=== PATIENT | female | born 1950 | race Caucasian/White ===

== ENCOUNTER 2022-03-31 20:05 | Inpatient (IN) | payer MEDICAID, OTHER ==
[~2022-03-31] VITALS: Ht 170.2 cm; Wt 124.0 kg
[~2022-03-31 20:05] MED LIST: ALPR0.5T7 PO; ASPI1TAB20 PO; ATEN-60 PO; CARV12.544 PO; ENAL20TA8 PO; ESCI-28 PO; FURO1TAB33 PO; LIS5T GT; NOR10T PO; POTA1TAB61 PO; PROM25TA5 PO; RIVA10TA PO; TRAM-297 PO
[2022-03-31 23:22] LABS: Basophils # (auto) 0 10 ^3/uL (0-0.2); Basophils % (auto) 0.9 % (0.0-2.0); Eosinophils # (auto) 0 10 ^3/uL (0-0.8); Eosinophils % (auto) 0.8 % (0.0-7.0); Hematocrit 39.9 % (36.0-46.0); Hemoglobin 13.3 g/dL (12.2-16.2); Lymphocytes # (auto) 0.7 10 ^3/uL (0.4-5.4); Lymphocytes % (auto) 16.8 % (10.0-50.0); Mean Corpuscular Hemoglobin 37.4 pg (28.0-32.0); Mean Corpuscular Hgb Conc. 33.4 g/dL (32.0-36.0); Mean Corpuscular Volume 111.9 fL (80.0-100.0); Monocytes # (auto) 0.4 10 ^3/uL (0-1.3); Monocytes % (auto) 10.2 % (0.0-12.0); Neutrophils # (auto) 2.8 10 ^3/uL (1.6-8.6); Neutrophils % (auto) 71.3 % (37.0-80.0); Nucleated Red Blood Cells % 0.2 %; Red Blood Cells 3.57 10^6/uL (4.0-5.20); Red Cell Distribution Width 15.2 % (11.8-14.3); White Blood Cell 3.9 10^3/uL (4.4-10.8)
[2022-03-31 23:42] LABS: Calcium 9.7 mg/dL (8.5-10.1)
[2022-03-31 23:45] LABS: Albumin 3.3 g/dL (3.4-5.0); BUN/Creatinine Ratio 17.5
[2022-03-31 23:47] LABS: Bilirubin, Total 1.1 mg/dL (0.2-1.0); Total Protein 6.6 g/dL (6.4-8.2)
[2022-04-01] MEDS ORDERED: FUROSEMIDE 20 MG/2 ML VIAL IV ONE (02:00)
[2022-04-01] MEDS ORDERED: ASPirin 81 mg TAB PO ONE (02:00)
[2022-04-01 05:28] LABS: Urine Bacteria NONE SEEN /hpf (None Seen); Urine Blood Negative /uL (Negative); Urine Hyaline Cast FEW /lpf (0 - 2); Urine Specific Gravity 1.015 (1.001-1.035); Urine WBC 2 /hpf (0 - 5)
[2022-04-01] MEDS ORDERED: NITROGLYCERIN 0.4 MG SL TAB SL PRN (13:00)
[2022-04-01] MEDS ORDERED: MORPHINE SULFATE INJ 2 MG/ml SYRG IV PRN ×2 (13:00→13:15)
[2022-04-01] MEDS ORDERED: FUROSEMIDE 40 MG/4 ML VIAL IV ONE (13:15)
[2022-04-01] MEDS ORDERED: hydrALAZINE HCL 20 MG/ML VL IV PRN (13:15)
[2022-04-01] MEDS ORDERED: ALBUTEROL SULF 2.5 MG/0.5ML(0.5%) NEB SOLN NEB PRN (13:30)
[2022-04-01 13:54] LABS: Alcohol, Urine < 3.0 mg/dL (0-10); Amphetamine Screen, Urine NEGATIVE (NEGATIVE); Barbiturate Scree,Urine NEGATIVE (NEGATIVE); Benzodiazephine Screen, Urine POSITIVE (NEGATIVE); Cannabinoid Screen, Urine NEGATIVE (NEGATIVE); Cocaine Screen, Urine NEGATIVE (NEGATIVE); Opiate Scree,Urine POSITIVE (NEGATIVE); Phencyclidine Screen, Urine NEGATIVE (NEGATIVE)
[2022-04-01 14:22] VITALS: BP 141/93
[2022-04-01] MEDS: ALPRAZolam 0.25 MG TAB PO PRN ×2 (14:46→23:33)
[2022-04-01 15:11] LABS: Cholesterol 123 mg/dL (< 200)
[2022-04-01 15:14] LABS: HDL Cholesterol 53 mg/dL (40-59); LDL Cholesterol 71 mg/dL (< 100); Triglycerides 75 mg/dL (< 150)
[2022-04-01 16:38] VITALS: BP 141/93
[2022-04-01 22:00] VITALS: BP 153/86
[2022-04-01] MEDS: MORPHINE SULFATE 4 MG/ML SYR/VIAL IV PRN (22:05)
[2022-04-02] MEDS: HYDROcodone-ACET 5/325MG TAB PO PRN ×4 (00:13→14:03)
[2022-04-02] MEDS: MORPHINE SULFATE 4 MG/ML SYR/VIAL IV PRN ×2 (03:18→22:14)
[2022-04-02 05:00] VITALS: BP 141/78
[2022-04-02 06:27] LABS: Basophils # (auto) 0 10 ^3/uL (0-0.2); Basophils % (auto) 0.9 % (0.0-2.0); Eosinophils # (auto) 0.1 10 ^3/uL (0-0.8); Eosinophils % (auto) 1.8 % (0.0-7.0); Hematocrit 38.6 % (36.0-46.0); Hemoglobin 12.9 g/dL (12.2-16.2); Lymphocytes # (auto) 0.8 10 ^3/uL (0.4-5.4); Lymphocytes % (auto) 18.8 % (10.0-50.0); Mean Corpuscular Hemoglobin 37.3 pg (28.0-32.0); Mean Corpuscular Hgb Conc. 33.5 g/dL (32.0-36.0); Monocytes # (auto) 0.6 10 ^3/uL (0-1.3); Monocytes % (auto) 13.2 % (0.0-12.0); Neutrophils # (auto) 2.9 10 ^3/uL (1.6-8.6); Neutrophils % (auto) 65.3 % (37.0-80.0); Red Blood Cells 3.47 10^6/uL (4.0-5.20); Red Cell Distribution Width 14.8 % (11.8-14.3); White Blood Cell 4.5 10^3/uL (4.4-10.8)
[2022-04-02 06:32] LABS: Mean Corpuscular Volume 111.2 fL (80.0-100.0)
[2022-04-02 06:43] LABS: Albumin 2.8 g/dL (3.4-5.0); Calcium 9.2 mg/dL (8.5-10.1); Potassium 3.6 mmol/L (3.5-5.1)
[2022-04-02 06:46] LABS: BUN/Creatinine Ratio 13.2; Bilirubin, Total 1.2 mg/dL (0.2-1.0); Total Protein 6.1 g/dL (6.4-8.2)
[2022-04-02 09:00] VITALS: BP 152/66
[2022-04-02] MEDS ORDERED: FUROSEMIDE 40 MG/4 ML VIAL IV SCH (10:00)
[2022-04-02] MEDS ORDERED: ENOXAPARIN SOD 40 MG/0.4 ML SYRINGE SC SCH (10:00)
[2022-04-02] MEDS: ALPRAZolam 0.25 MG TAB PO PRN ×2 (10:42→19:46)
[2022-04-02 13:00] VITALS: BP 140/95
[2022-04-02] MEDS ORDERED: AMIODARONE HCL 200 MG TAB PO ONE (16:45)
[2022-04-02] MEDS ORDERED: LOSARTAN POTASSIUM 25 MG TAB PO ONE (16:45)
[2022-04-02] MEDS: HYDROcodone-ACET 10/325MG TAB PO PRN ×2 (16:55→20:58)
[2022-04-02 17:00] VITALS: BP 142/87
[2022-04-02] MEDS ORDERED: ONDANSETRON HCL 4 MG/2 ML VIAL IV PRN (17:00)
[2022-04-02] MEDS: FUROSEMIDE 40 MG/4 ML VIAL IV SCH (17:26)
[2022-04-02] MEDS ORDERED: RIVAROXABAN 20 MG TAB PO SCH (18:00)
[2022-04-02 22:00] VITALS: BP 143/84
[2022-04-02] MEDS: DOCUSATE SOD 100 MG CAP PO SCH (22:07)
[2022-04-02] MEDS: METOPROLOL TARTRATE 25 MG TAB PO SCH (22:14)
[2022-04-03] MEDS: HYDROcodone-ACET 10/325MG TAB PO PRN ×3 (01:27→15:15)
[2022-04-03] MEDS: ALPRAZolam 0.25 MG TAB PO PRN ×2 (03:52→12:08)
[2022-04-03 05:00] VITALS: BP 126/87
[2022-04-03 05:46] LABS: Basophils # (auto) 0 10 ^3/uL (0-0.2); Basophils % (auto) 0.9 % (0.0-2.0); Eosinophils # (auto) 0.1 10 ^3/uL (0-0.8); Eosinophils % (auto) 2.3 % (0.0-7.0); Hematocrit 36.9 % (36.0-46.0); Hemoglobin 12.5 g/dL (12.2-16.2); Lymphocytes # (auto) 0.8 10 ^3/uL (0.4-5.4); Lymphocytes % (auto) 20.1 % (10.0-50.0); Mean Corpuscular Hemoglobin 37.6 pg (28.0-32.0); Mean Corpuscular Hgb Conc. 33.9 g/dL (32.0-36.0); Mean Corpuscular Volume 110.9 fL (80.0-100.0); Monocytes # (auto) 0.5 10 ^3/uL (0-1.3); Monocytes % (auto) 13.2 % (0.0-12.0); Neutrophils # (auto) 2.6 10 ^3/uL (1.6-8.6); Neutrophils % (auto) 63.5 % (37.0-80.0); Nucleated Red Blood Cells % 0.2 %; Red Blood Cells 3.32 10^6/uL (4.0-5.20); Red Cell Distribution Width 14.4 % (11.8-14.3)
[2022-04-03] MEDS: FUROSEMIDE 40 MG/4 ML VIAL IV SCH (06:01)
[2022-04-03 06:09] LABS: Potassium 3.4 mmol/L (3.5-5.1)
[2022-04-03 06:22] LABS: BUN/Creatinine Ratio 13.7; Magnesium 2.1 mg/dL (1.6-2.6)
[2022-04-03 08:00] VITALS: BP 129/79
[2022-04-03] MEDS: METOPROLOL TARTRATE 25 MG TAB PO SCH (10:00)
[2022-04-03] MEDS ORDERED: LOSARTAN POTASSIUM 25 MG TAB PO SCH (10:00)
[2022-04-03] MEDS: DOCUSATE SOD 100 MG CAP PO SCH (10:00)
[2022-04-03] MEDS ORDERED: AMIODARONE HCL 200 MG TAB PO SCH (10:00)
[2022-04-03 12:00] VITALS: BP 129/77
[2022-04-03 15:55] VITALS: BP 129/77
== END 2022-04-03 16:39 | disposition home or self-care (01) | DRG 291 ==
LOC: EDBD 20:05 → ER 20:05 → TELE 04-01 12:56 → TELE-EAST 04-01 15:20
PROVIDERS: ADMIT Registered Nurse; ATTEND Internal Medicine Geriatric Medicine
DX: I13.0 Hypertensive heart and chronic kidney disease with heart failure and stage 1 through stage 4 chronic kidney disease, or unspecified chronic kidney disease (principal); I50.43 Acute on chronic combined systolic (congestive) and diastolic (congestive) heart failure; Z68.41 Body mass index [BMI] 40.0-44.9, adult; E66.01 Morbid (severe) obesity due to excess calories; F32.A Depression, unspecified; F41.9 Anxiety disorder, unspecified; N18.32 Chronic kidney disease, stage 3b; Z20.822 Contact with and (suspected) exposure to COVID-19; I48.0 Paroxysmal atrial fibrillation; R80.9 Proteinuria, unspecified; Z79.01 Long term (current) use of anticoagulants; Z79.899 Other long term (current) drug therapy; Z87.442 Personal history of urinary calculi; Z90.710 Acquired absence of both cervix and uterus; Z95.0 Presence of cardiac pacemaker; Z88.5 Allergy status to narcotic agent; Z88.8 Allergy status to other drugs, medicaments and biological substances; Z90.49 Acquired absence of other specified parts of digestive tract
CPT/HCPCS: 36415; 70450; 71045; 80048; 80053; 80061; 80307; 81001; 82962; 83036; 83735; 83880; 84484; 85025; 85379; 93005; 93306; 96374; 99291; G0378

== ENCOUNTER 2022-11-13 17:14 | Inpatient (IN) | payer OTHER ==
[~2022-11-13] VITALS: Ht 175.3 cm; Wt 105.0 kg
[2022-11-13 18:18] LABS: Eosinophils # (auto) 0.1 10 ^3/uL (0-0.8); Lymphocytes # (auto) 1.2 10 ^3/uL (0.4-5.4); Monocytes # (auto) 0.7 10 ^3/uL (0-1.3); Neutrophils # (auto) 2.2 10 ^3/uL (1.6-8.6)
[2022-11-13 18:20] LABS: Basophils # (auto) 0.1 10 ^3/uL (0-0.2); Basophils % (auto) 1.4 % (0.0-2.0); Eosinophils % (auto) 2.4 % (0.0-7.0); Hematocrit 37.6 % (36.0-46.0); Hemoglobin 12.8 g/dL (12.2-16.2); Lymphocytes % (auto) 27.5 % (10.0-50.0); Mean Corpuscular Hemoglobin 36.7 pg (28.0-32.0); Mean Corpuscular Hgb Conc. 33.9 g/dL (32.0-36.0); Mean Corpuscular Volume 108.1 fL (80.0-100.0); Monocytes % (auto) 15.7 % (0.0-12.0); Nucleated Red Blood Cells % 0.3 %; Red Blood Cells 3.48 10^6/uL (4.0-5.20); White Blood Cell 4.2 10^3/uL (4.4-10.8)
[2022-11-13 18:35] LABS: Albumin 3.4 g/dL (3.4-5.0); Calcium 9.4 mg/dL (8.5-10.1); Potassium 3.6 mmol/L (3.5-5.1)
[2022-11-13 18:40] LABS: Bilirubin, Total 0.6 mg/dL (0.2-1.0); Total Protein 6.4 g/dL (6.4-8.2)
[2022-11-13 19:38] LABS: BUN/Creatinine Ratio 16.2
[2022-11-14] MEDS ORDERED: ONDANSETRON HCL 4 MG/2 ML VIAL IV PRN (01:30)
[2022-11-14] MEDS ORDERED: cefTRIAXone 1GM/50ML D5W 50 ML IV ONE (01:30)
[2022-11-14] MEDS ORDERED: FUROSEMIDE 40 MG/4 ML VIAL IV ONE (01:30)
[2022-11-14] MEDS ORDERED: ACETAMINOPHEN 325 MG TAB PO PRN (01:30)
[2022-11-14] MEDS ORDERED: TEMAZEPAM 15 MG CAP PO PRN (01:30)
[2022-11-14] MEDS ORDERED: AZITHROMYCIN 500MG/ 250ML 250 ML IV ONE (01:30)
[2022-11-14] MEDS ORDERED: MORPHINE SULFATE INJ 2 MG/ml SYRG IV PRN (01:30)
[2022-11-14] MEDS ORDERED: NITROGLYCERIN 0.4 MG SL TAB SL PRN (01:30)
[2022-11-14] MEDS ORDERED: DOCUSATE SOD 100 MG CAP PO PRN (01:30)
[2022-11-14] MEDS ORDERED: MORPHINE SULFATE INJ 2 MG/ml SYRG IV ONE (04:15)
[2022-11-14 07:17] LABS: Basophils # (auto) 0 10 ^3/uL (0-0.2); Basophils % (auto) 0.9 % (0.0-2.0); Eosinophils # (auto) 0.1 10 ^3/uL (0-0.8); Hematocrit 37.9 % (36.0-46.0); Hemoglobin 12.5 g/dL (12.2-16.2); Lymphocytes % (auto) 30.7 % (10.0-50.0); Mean Corpuscular Hemoglobin 35.4 pg (28.0-32.0); Mean Corpuscular Volume 107.4 fL (80.0-100.0); Monocytes # (auto) 0.4 10 ^3/uL (0-1.3); Monocytes % (auto) 13.6 % (0.0-12.0); Neutrophils # (auto) 1.6 10 ^3/uL (1.6-8.6); Neutrophils % (auto) 51.8 % (37.0-80.0); Nucleated Red Blood Cells % 0.2 %; Red Blood Cells 3.53 10^6/uL (4.0-5.20); Red Cell Distribution Width 13.9 % (11.8-14.3); White Blood Cell 3.2 10^3/uL (4.4-10.8)
[2022-11-14] MEDS: cefTRIAXone 1GM/50ML D5W 50 ML IV SCH (07:17)
[2022-11-14 07:32] LABS: BUN/Creatinine Ratio 16.7; Calcium 9.8 mg/dL (8.5-10.1); Potassium 3.7 mmol/L (3.5-5.1)
[2022-11-14 07:35] LABS: Bilirubin, Total 0.8 mg/dL (0.2-1.0); Total Protein 6.4 g/dL (6.4-8.2)
[2022-11-14] MEDS ORDERED: FAMOTIDINE (10MG/ML) 2ML VL IV SCH (10:00)
[2022-11-14] MEDS: ASPirin 81 mg TAB PO SCH (10:00)
[2022-11-14] MEDS: AZITHROMYCIN 500MG/ 250ML 250 ML IV SCH (10:00)
[2022-11-14] MEDS ORDERED: FUROSEMIDE 40 MG/4 ML VIAL IV SCH (10:00)
[2022-11-14] MEDS: CARVEDILOL 3.125 MG TAB PO SCH ×2 (10:47→22:09)
[2022-11-14] MEDS ORDERED: POTASSIUM CHL 20 Meq TABLET PO ONE (12:15)
[2022-11-14] MEDS ORDERED: AMIODARONE HCL 200 MG TAB PO ONE (12:15)
[2022-11-14] MEDS ORDERED: LOSARTAN POTASSIUM 50 MG TAB PO ONE (12:15)
[2022-11-14 15:02] LABS: Urine Bacteria FEW /hpf (None Seen); Urine Blood Negative /uL (Negative); Urine Hyaline Cast MOD /lpf (0 - 2); Urine Specific Gravity 1.009 (1.001-1.035); Urine WBC 1 /hpf (0 - 5)
[2022-11-14] MEDS: ALPRAZolam 0.5 MG TAB PO PRN (17:43)
[2022-11-14] MEDS: FUROSEMIDE 40 MG/4 ML VIAL IV SCH (17:52)
[2022-11-14] MEDS: HYDROcodone-ACET 10/325MG TAB PO PRN ×2 (18:01→23:18)
[2022-11-14] MEDS: APIXABAN 2.5 MG TAB PO SCH (22:07)
[2022-11-15] MEDS: ALPRAZolam 0.5 MG TAB PO PRN (03:26)
[2022-11-15] MEDS: HYDROcodone-ACET 10/325MG TAB PO PRN ×2 (03:26→08:57)
[2022-11-15 07:18] LABS: Potassium 3.3 mmol/L (3.5-5.1)
[2022-11-15 07:20] LABS: Mean Corpuscular Volume 106.8 fL (80.0-100.0)
[2022-11-15 07:22] LABS: Albumin 2.8 g/dL (3.4-5.0); BUN/Creatinine Ratio 14.6; Calcium 9.4 mg/dL (8.5-10.1)
[2022-11-15 07:25] LABS: Bilirubin, Total 0.5 mg/dL (0.2-1.0); Hematocrit 36.3 % (36.0-46.0); Hemoglobin 12.1 g/dL (12.2-16.2); Mean Corpuscular Hemoglobin 35.6 pg (28.0-32.0); Mean Corpuscular Hgb Conc. 33.3 g/dL (32.0-36.0); Red Cell Distribution Width 14.4 % (11.8-14.3)
[2022-11-15] MEDS ORDERED: POTASSIUM CHL 20 Meq TABLET PO ONE (08:00)
[2022-11-15 08:02] LABS: Basophils % (manual) 0 (0.0-2.0); Blast Cells 0; Myelocytes % 0; Promyelocytes % 0
[2022-11-15] MEDS: ASPirin 81 mg TAB PO SCH (08:57)
[2022-11-15] MEDS: APIXABAN 2.5 MG TAB PO SCH (08:57)
[2022-11-15] MEDS: FUROSEMIDE 40 MG/4 ML VIAL IV SCH (08:58)
[2022-11-15] MEDS: cefTRIAXone 1GM/50ML D5W 50 ML IV SCH (08:58)
[2022-11-15] MEDS: AZITHROMYCIN 500MG/ 250ML 250 ML IV SCH (08:58)
[2022-11-15] MEDS: CARVEDILOL 3.125 MG TAB PO SCH (09:07)
[2022-11-15] MEDS ORDERED: LOSARTAN POTASSIUM 50 MG TAB PO SCH (10:00)
[2022-11-15] MEDS ORDERED: AMIODARONE HCL 200 MG TAB PO SCH (10:00)
[2022-11-15 10:10] VITALS: BP 126/82
[2022-11-15] MEDS ORDERED: PANT40TA2 PO (10:13)
[2022-11-15] MEDS ORDERED: LEVO250T69 PO (10:13)
[2022-11-15 11:46] LABS: Band Neutrophils % (manual) 3; Eosinophils % (manual) 1 (0-7); Lymphocytes % (manual) 21 (10.0-50.0); Metamyelocytes % 1; Monocytes % (manual) 10 (0-12); Reactive Lymphocytes 3
== END 2022-11-15 10:53 | disposition home or self-care (01) | DRG 193 ==
LOC: EDBD 17:14 → ER 17:18 → TELE 11-14 01:29
PROVIDERS: ADMIT Nurse Practitioner Family; ATTEND Internal Medicine Geriatric Medicine
DX: J18.9 Pneumonia, unspecified organism (principal); I50.43 Acute on chronic combined systolic (congestive) and diastolic (congestive) heart failure; I13.0 Hypertensive heart and chronic kidney disease with heart failure and stage 1 through stage 4 chronic kidney disease, or unspecified chronic kidney disease; E66.9 Obesity, unspecified; F32.A Depression, unspecified; F41.9 Anxiety disorder, unspecified; G89.29 Other chronic pain; I48.91 Unspecified atrial fibrillation; N18.9 Chronic kidney disease, unspecified; R09.02 Hypoxemia; Z20.822 Contact with and (suspected) exposure to COVID-19; K21.9 Gastro-esophageal reflux disease without esophagitis; K44.9 Diaphragmatic hernia without obstruction or gangrene; Z79.01 Long term (current) use of anticoagulants; Z82.49 Family history of ischemic heart disease and other diseases of the circulatory system; Z68.39 Body mass index [BMI] 39.0-39.9, adult; Z87.442 Personal history of urinary calculi; Z90.710 Acquired absence of both cervix and uterus; Z88.5 Allergy status to narcotic agent; Z88.8 Allergy status to other drugs, medicaments and biological substances
CPT/HCPCS: 36415; 71045; 80053; 81001; 83880; 84484; 85007; 85025; 85027; 87426; 93005; 93971; G0378; J0696; J2405; J3490

== ENCOUNTER 2023-12-17 12:16 | Inpatient (IN) | payer OTHER ==
[~2023-12-17] VITALS: Ht 170.2 cm; Wt 103.8 kg
[~2023-12-17 12:16] MED LIST changes: +ENAL1TAB48 PO; -ENAL20TA8 PO; -ESCI-28 PO; +ESCI1TAB36 PO; +LEVO250T58 PO; +PANT40TA2 PO; +PROM25TA10 PO; -PROM25TA5 PO
[2023-12-17 13:01] LABS: Eosinophils # (auto) 0.1 10 ^3/uL (0-0.8); Hemoglobin 11.2 g/dL (12.2-16.2); Monocytes # (auto) 0.4 10 ^3/uL (0-1.3); Nucleated Red Blood Cells % 0.1 %; White Blood Cell 3.6 10^3/uL (4.4-10.8)
[2023-12-17 13:02] LABS: Basophils # (auto) 0 10 ^3/uL (0-0.2); Basophils % (auto) 0.9 % (0.0-2.0); Eosinophils % (auto) 2.4 % (0.0-7.0); Hematocrit 35.2 % (36.0-46.0); Lymphocytes # (auto) 0.8 10 ^3/uL (0.4-5.4); Lymphocytes % (auto) 22.2 % (10.0-50.0); Mean Corpuscular Hemoglobin 33.5 pg (28.0-32.0); Mean Corpuscular Hgb Conc. 31.9 g/dL (32.0-36.0); Mean Corpuscular Volume 104.9 fL (80.0-100.0); Monocytes % (auto) 12.3 % (0.0-12.0); Neutrophils # (auto) 2.3 10 ^3/uL (1.6-8.6); Neutrophils % (auto) 62.2 % (37.0-80.0); Red Blood Cells 3.36 10^6/uL (4.0-5.20); Red Cell Distribution Width 19.8 % (11.8-14.3)
[2023-12-17 13:10] VITALS: PULSE 98; RESP 18; O2SAT 97
[2023-12-17 13:13] LABS: Anion Gap 7 (5-15); Carbon Dioxide 33 mmol/L (20-30); Chloride 105 mmol/L (98-107); INR 1.09 (0.9-1.15); Potassium 3.4 mmol/L (3.5-5.1); Prothrombin Time 11.4 sec (9.3-11.8); Sodium 145 mmol/L (136-145)
[2023-12-17 13:19] LABS: BUN/Creatinine Ratio 23.5 (10.0-20.0); Blood Urea Nitrogen 35 mg/dL (9-23); Glucose 93 mg/dL (74-106)
[2023-12-17] MEDS: ONDANSETRON HCL 4 MG/2 ML VIAL IV ONE (14:04)
[2023-12-17] MEDS: MORPHINE SULFATE 4 MG/ML SYR/VIAL IV ONE (14:04)
[2023-12-17] MEDS ORDERED: DOCUSATE SOD 100 MG CAP PO PRN (17:00)
[2023-12-17] MEDS: SODIUM CHLORIDE 0.9% 500 ML IV ONE (18:08)
[2023-12-17] MEDS: ONDANSETRON HCL 4 MG/2 ML VIAL IV PRN (18:10)
[2023-12-17] MEDS: HYDROmorphone HCL 2 MG/ML VL/or syr IV PRN (18:14)
[2023-12-17 19:30] VITALS: PULSE 78; RESP 12; O2SAT 98
[2023-12-17] MEDS ORDERED: METO-159 PO (21:40)
[2023-12-17] MEDS ORDERED: AMIO200T33 PO (21:40)
[2023-12-17] MEDS ORDERED: OME20T PO (21:40)
[2023-12-17] MEDS ORDERED: HYDR-4798 PO (21:49)
[2023-12-17] MEDS ORDERED: ESCI1TAB36 PO (21:49)
[2023-12-17] MEDS ORDERED: QUET100T47 PO (21:49)
[2023-12-17] MEDS ORDERED: ASCO500T11 GT (21:49)
[2023-12-17] MEDS ORDERED: POTA10TA51 PO (21:49)
[2023-12-17] MEDS ORDERED: APIX2.5T PO (21:49)
[2023-12-17] MEDS ORDERED: ONDA-155 PO (21:49)
[2023-12-17] MEDS ORDERED: CYAN1TAB14 PO (21:49)
[2023-12-17] MEDS ORDERED: ATOR10TA52 PO (21:49)
[2023-12-17] MEDS ORDERED: SENN1TAB14 PO (21:49)
[2023-12-17] MEDS ORDERED: CHOL25CH3 PO (21:49)
[2023-12-17] MEDS: ALPRAZolam 0.5 MG TAB PO PRN (22:32)
[2023-12-18] VITALS (8 sets, daily range): BP systolic 105–140; BP diastolic 66–95; PULSE 58–77; RESP 17–20; TEMP 97.9–98.3; O2SAT 94–98
[2023-12-18] MEDS ORDERED: BUME1TAB3 PO (00:55)
[2023-12-18] MEDS ORDERED: FERR325T24 PO (00:55)
[2023-12-18] MEDS ORDERED: METO2.5T PO (00:55)
[2023-12-18 07:03] LABS: Basophils # (auto) 0 10 ^3/uL (0-0.2); Eosinophils # (auto) 0.1 10 ^3/uL (0-0.8); Hemoglobin 11.2 g/dL (12.2-16.2); Lymphocytes # (auto) 1.1 10 ^3/uL (0.4-5.4); Mean Corpuscular Hemoglobin 33.7 pg (28.0-32.0); Monocytes # (auto) 0.7 10 ^3/uL (0-1.3); Red Cell Distribution Width 19.9 % (11.8-14.3)
[2023-12-18 07:06] LABS: Basophils % (auto) 0.8 % (0.0-2.0); Eosinophils % (auto) 2.9 % (0.0-7.0); Hematocrit 35.4 % (36.0-46.0); Lymphocytes % (auto) 21.8 % (10.0-50.0); Mean Corpuscular Hgb Conc. 31.7 g/dL (32.0-36.0); Mean Corpuscular Volume 106.5 fL (80.0-100.0); Monocytes % (auto) 13.3 % (0.0-12.0); Neutrophils % (auto) 61.2 % (37.0-80.0); Nucleated Red Blood Cells % 0.1 %; Red Blood Cells 3.33 10^6/uL (4.0-5.20); White Blood Cell 4.9 10^3/uL (4.4-10.8)
[2023-12-18 07:36] LABS: Alanine Aminotransferase 14 U/L (7-40); Alkaline Phosphatase 62 U/L (46-116); BUN/Creatinine Ratio 14.8 (10.0-20.0); Blood Urea Nitrogen 19 mg/dL (9-23); Calcium 9.3 mg/dL (8.5-10.1); Chloride 107 mmol/L (98-107); Glucose 84 mg/dL (74-106); Potassium 3.7 mmol/L (3.5-5.1); Sodium 145 mmol/L (136-145)
[2023-12-18 07:37] LABS: Albumin 2.8 g/dL (3.2-4.8); Aspartate Aminotransferase 28 U/L (13-40); Bilirubin, Total 0.6 mg/dL (0.2-1.0); Total Protein 5.1 g/dL (5.7-8.2)
[2023-12-18 08:07] LABS: Anion Gap 6 (5-15); Carbon Dioxide 32 mmol/L (20-30)
[2023-12-18] MEDS: SODIUM CHLORIDE 0.9% 1,000 ML IV SCH (10:30)
[2023-12-18] MEDS: PANTOPRAZOLE 40 MG/10 ML VIAL INJ IV ONE (11:19)
[2023-12-18] MEDS: CITALOPRAM HYDROBR 20 MG TAB PO ONE (11:20)
[2023-12-18] MEDS: HYDROcodone-ACET 10/325MG TAB PO PRN (11:21)
[2023-12-18] MEDS: AMIODARONE HCL 200 MG TAB PO ONE (11:22)
[2023-12-18] MEDS: METOPROLOL TARTRATE 25 MG TAB PO ONE (11:22)
[2023-12-18] MEDS: METOPROLOL TARTRATE 25 MG TAB PO SCH (21:05)
[2023-12-18] MEDS: ATORVASTATIN 20 MG TAB PO SCH (21:05)
[2023-12-18] MEDS: PANTOPRAZOLE 40 MG/10 ML VIAL INJ IV SCH (21:06)
[2023-12-18] MEDS: QUEtiapine FUMARATE 25 MG TAB PO SCH (21:06)
[2023-12-19] VITALS (7 sets, daily range): BP systolic 111–136; BP diastolic 68–88; PULSE 61–75; RESP 18–20; TEMP 36.9; O2SAT 94–98
[2023-12-19 06:45] LABS: Basophils # (auto) 0 10 ^3/uL (0-0.2); Eosinophils # (auto) 0.2 10 ^3/uL (0-0.8); Mean Corpuscular Volume 109.3 fL (80.0-100.0); Monocytes # (auto) 0.5 10 ^3/uL (0-1.3); Neutrophils # (auto) 2.2 10 ^3/uL (1.6-8.6)
[2023-12-19 06:48] LABS: Basophils % (auto) 0.8 % (0.0-2.0); Hematocrit 35.3 % (36.0-46.0); Hemoglobin 11.1 g/dL (12.2-16.2); Lymphocytes # (auto) 0.9 10 ^3/uL (0.4-5.4); Lymphocytes % (auto) 24.9 % (10.0-50.0); Mean Corpuscular Hemoglobin 34.5 pg (28.0-32.0); Mean Corpuscular Hgb Conc. 31.6 g/dL (32.0-36.0); Monocytes % (auto) 12.9 % (0.0-12.0); Neutrophils % (auto) 57.4 % (37.0-80.0); Red Blood Cells 3.23 10^6/uL (4.0-5.20); Red Cell Distribution Width 19.5 % (11.8-14.3); White Blood Cell 3.8 10^3/uL (4.4-10.8)
[2023-12-19 07:02] LABS: Alanine Aminotransferase 10 U/L (7-40); Albumin 2.8 g/dL (3.2-4.8); Alkaline Phosphatase 63 U/L (46-116); Anion Gap 5 (5-15); Aspartate Aminotransferase 27 U/L (13-40); BUN/Creatinine Ratio 12.5 (10.0-20.0); Blood Urea Nitrogen 14 mg/dL (9-23); Calcium 9.2 mg/dL (8.5-10.1); Carbon Dioxide 32 mmol/L (20-30); Chloride 108 mmol/L (98-107); Cholesterol 121 mg/dL (< 200); Glucose 83 mg/dL (74-106); HDL Cholesterol 54 mg/dL (40-59); LDL Cholesterol 55 mg/dL (< 100); Potassium 3.8 mmol/L (3.5-5.1); Sodium 145 mmol/L (136-145); Triglycerides 71 mg/dL (< 150)
[2023-12-19 07:03] LABS: Bilirubin, Total 0.8 mg/dL (0.2-1.0); Total Protein 5.1 g/dL (5.7-8.2)
[2023-12-19 07:24] LABS: Creatinine, Urine 110.03 mg/dL (30.0-125.0)
[2023-12-19 07:41] LABS: Urine Bacteria FEW /hpf (None Seen); Urine Blood Negative /uL (Negative); Urine Clarity HAZY (Clear); Urine Color Yellow (Yellow); Urine Protein, UAD Negative (Negative); Urine WBC 22 /hpf (0 - 5); Urine pH 5.5 (5.0-8.0)
[2023-12-19 07:54] LABS: Lipase 29 U/L (12-53); Magnesium 2.1 mg/dL (1.6-2.6)
[2023-12-19] MEDS: CITALOPRAM HYDROBR 20 MG TAB PO SCH (10:22)
[2023-12-19] MEDS: AMIODARONE HCL 200 MG TAB PO SCH (10:22)
== END 2023-12-19 13:45 | disposition home or self-care (01) | DRG 315 ==
LOC: ER 12:16 → EDBD 12:16 → TELE 16:57 → TELE-EAST 23:10
PROVIDERS: ADMIT Nurse Practitioner Family; ATTEND Internal Medicine Geriatric Medicine
DX: I95.89 Other hypotension (principal); E44.0 Moderate protein-calorie malnutrition; N17.9 Acute kidney failure, unspecified; I13.0 Hypertensive heart and chronic kidney disease with heart failure and stage 1 through stage 4 chronic kidney disease, or unspecified chronic kidney disease; I48.20 Chronic atrial fibrillation, unspecified; N39.0 Urinary tract infection, site not specified; I50.32 Chronic diastolic (congestive) heart failure; S70.01XA Contusion of right hip, initial encounter; S20.219A Contusion of unspecified front wall of thorax, initial encounter; S00.83XA Contusion of other part of head, initial encounter; E87.6 Hypokalemia; S16.1XXA Strain of muscle, fascia and tendon at neck level, initial encounter; R51.9 Headache, unspecified; D64.9 Anemia, unspecified; E66.9 Obesity, unspecified; E78.5 Hyperlipidemia, unspecified; E86.0 Dehydration; F06.4 Anxiety disorder due to known physiological condition; F32.9 Major depressive disorder, single episode, unspecified; F41.0 Panic disorder [episodic paroxysmal anxiety]; G89.4 Chronic pain syndrome; I27.20 Pulmonary hypertension, unspecified; T50.2X5A Adverse effect of carbonic-anhydrase inhibitors, benzothiadiazides and other diuretics, initial encounter; M17.11 Unilateral primary osteoarthritis, right knee; M48.02 Spinal stenosis, cervical region; N18.32 Chronic kidney disease, stage 3b; E04.1 Nontoxic single thyroid nodule; N20.0 Calculus of kidney; K83.8 Other specified diseases of biliary tract; W18.39XA Other fall on same level, initial encounter; Z95.0 Presence of cardiac pacemaker; Z88.5 Allergy status to narcotic agent; Z88.8 Allergy status to other drugs, medicaments and biological substances; Z79.899 Other long term (current) drug therapy; Z79.82 Long term (current) use of aspirin; Z98.1 Arthrodesis status; Z90.710 Acquired absence of both cervix and uterus; Z79.01 Long term (current) use of anticoagulants; Z90.49 Acquired absence of other specified parts of digestive tract; Z82.49 Family history of ischemic heart disease and other diseases of the circulatory system; Z68.35 Body mass index [BMI] 35.0-35.9, adult; Z87.442 Personal history of urinary calculi; Y93.89 Activity, other specified; Y99.8 Other external cause status; Y92.009 Unspecified place in unspecified non-institutional (private) residence as the place of occurrence of the external cause
CPT/HCPCS: 36415; 70450; 71045; 71250; 72125; 73562; 74176; 80048; 80053; 80061; 81001; 82570; 83036; 83690; 83735; 83880; 84300; 84443; 84484; 85025; 85610; 93005; 93306; 96374; 96375; 96376; C9113; G0378; J2405